=== PATIENT | male | born 1945 | race African-American/Black ===

== ENCOUNTER 2021-09-19 10:50 | Emergency (ER) | payer OTHER, MEDICARE ==
[~2021-09-19] VITALS: Ht 185.4 cm; Wt 80.6 kg
[2021-09-19] MEDS ORDERED: IV NORMAL SALINE 1,000ML 1,000 ML IV ONE (11:15)
[2021-09-19] MEDS ORDERED: PROPOFOL 100 ML IV PRN (11:15)
--- NOTE | 2021-09-19 11:22 | PHYS DOC ---
Past History Past Medical History: Diabetes, Hypertension Additional Past Medical Histor: Glaucoma Past Medical History Limited secondary to respiratory arrest/altered mental status Past Surgical History Limited secondary to respiratory arrest/altered mental status Smoking: Non-smoker Alcohol Use: None Drug Use: None Social History Limited secondary to respiratory arrest/altered mental status General Adult EDM: Chief Complaint: DYSPNEA/RESPIRATOY DISTRESS HPI: HPI: 75 year old male presents via EMS with SOA and low O2 sat. EMS reported O2 saturation of 60% in the field despite placement of 15L via non-rebreather mask. Blood sugar via EMS was 164. Per patient's family, he is not vaccinated for COVID. Denies known trauma. Denies known drug abuse. HPI limited due to acuity of condition/respiratory failure/altered mental status. Review of Systems: Review of Systems: ROS limited due to acuity of condition/respiratory failure/altered mental status. Current Medications: Current Meds: Current Medications Medications (Trade) Dose Ordered Sig/Nicolas Start Time Stop Time Status Last Admin Dose Admin Propofol 100 ml @ 0 mls/hr CONT PRN 09/19/21 11:15 UNV Sodium Chloride 1,000 ml @ 1,000 mls/hr 1X ONCE 09/19/21 11:15 09/19/21 12:14 UNV Physical Exam: PE: Constitutional: Ill-appearing, unresponsive HENT: Normocephalic, atraumatic, nares clear, TMs clear Eyes: Conjunctiva normal, no discharge Neck: Normal range of motion, supple Lungs & Thorax: Agonal respirations, limited chest rise and fall Cardiovascular: Regular rate and rhythm, normal heart sounds Abdomen: Soft, mild distention Skin: Warm, diaphoretic, no rash Extremities: No deformity, no edema Neurologic: GCS 3, Psychologic: Unable to obtain Current Patient Data: Vital Signs: Vital Signs Date Time Temp Pulse Resp B/P (MAP) Pulse Ox O2 Delivery O2 Flow Rate FiO2 09/19/21 11:10 100 Ventilator EKG: EKG: EKG @ 1115. Sinus rhythm at rate 76 bpm. Left anterior fascicular block, hyperacute T waves. RR 793ms. MN 162ms. QRS 104ms. QT 436ms. QTc 490ms. Radiology/Procedures: Radiology/Procedures: PROCEDURE: CT HEAD WO CONTRAST CT HEAD WITHOUT CONTRAST 09/19/2021 11:18 AM Indication: Reason: altered mental status / Spl. Instructions: / History: Comparison: None Procedure: Multidetector CT imaging of the head was performed without the administration of contrast. Findings: There is no evidence of acute intracranial hemorrhage. There is no evidence of acute territorial infarction. Please note that CT is limited for evaluation of acute ischemia. No mass effect or midline shift is identified . The ventricles and basilar cisterns have an appropriate appearance. No abnormal extra-axial fluid collections are seen. Fluid levels. Be present in the ethmoid air cells and sphenoid sinuses. Impression: 1.No evidence of acute intracranial abnormality 2. Ethmoid air cells and sphenoid sinus could represent sinusitis. Correlate with clinical findings. CT DOSING PQRS STATEMENT: One or more of the following individualized dose reduction techniques were utilized for this examination: 1. Automated exposure control 2. Adjustment of the mA and/or kV according to patient size 3. Use of iterative reconstruction technique Electronically signed by: Montana Aldana MD (09/19/2021 12:04 PM) [id number] PROCEDURE: CT ANGIOGRAPHY CHEST EXAM: CT chest with contrast - pulmonary embolus protocol CLINICAL HISTORY: Shortness of air COMPARISON: None. TECHNIQUE: CT of the chest following the administration of intravenous contrast during the pulmonary arterial phase. Axial, coronal and sagittal reformatted images were generated including MIP images. ---PQRS compliance statement - One or more of the following individualized dose reduction techniques were utilized for this study: 1. Automated exposure control 2. Adjustment of the mA and/or kV according to patient size 3. Use of iterative reconstruction technique--- FINDINGS: CHEST: Diagnostic quality: Adequate. Pulmonary emboli: None seen Right heart strain: None Pulmonary arteries: Normal in caliber. Heart is not enlarged. Small pericardial effusion. Small pleural effusions. Dependent opacities bilaterally possibly atelectasis. Diffuse groundglass opacities are seen bilaterally. Interstitial prominence. Evaluation for underlying lung nodule or mass is limited given the parenchymal opacities. Imaging follow-up to resolution is recommended. ET tube tip terminates within the mid-distal thoracic trachea. Stomach is markedly distended. Prominent mediastinal and hilar lymph nodes likely reactive. No axillary lymphadenopathy. No aggressive osseous lesion is seen. IMPRESSION: No evidence for acute pulmonary embolus. Bilateral pleural effusions, interstitial prominence and. Small pericardial effusion may be seen with pulmonary edema. Atypical infectious or inflammatory process could also have this appearance. Imaging follow-up to resolution is recommended as underlying mass or nodule may be obscured. Electronically signed by: Nathan Ruiz MD (09/19/2021 12:22 PM) [facility] Heart Score: C/O Chest Pain: N/A Course & Med Decision Making: Course & Med Decision Making 75 year old male presents via EMS unresponsive in respiratory failure. Patient arrived in respiratory failure with O2 sat down to 61% despite being on a nonrebreather at 15 L. Patient requiring [id number] with subsequent improvement of O2 sat. Patient did continue with unresponsiveness. Rapid sequence intubation performed with subsequent intubation. EKG with prominent T waves and no significant ST elevation. Labs obtained and posted to chart. Rapid COVID-19 testing negative. Troponin within normal limits. BNP slightly elevated. CTA chest without signs of acute PE however concern for atelectasis versus infiltrate noted. Cannot fully exclude COVID-19. COVID-19 PCR pending. Empiric antibiotic initiated. Initial ABG with low O2. PEEP increased. Hypertension also continued despite use of Propofol for sedation maintenance. Labetalol therefore also provided. Patient requiring transfer to higher level facility for admission for further evaluation and treatment. Discussed with Dr. Jeffries (hospitalist) at [facility] who is in agreement with admit. RN discussed findings and plan with patient's daughter and spouse, who acknowledge understanding and agreement. COVID-19 CRITERIA: The patient was evaluated during the global COVID-19 pandemic, and that diagnosis was suspected/considered upon their initial presentation. Their evaluation, treatment and testing was consistent with current guidelines for patients who present with complaints or symptoms that may be related to COVID-19. Dragaguila Disclaimer: Dragaguila Disclaimer: This electronic medical record was generated, in whole or in part, using a voice recognition dictation system. Intubation Intubation : Intubation Method: orotracheal Tube Size (cm): 8.0 Breath Sounds after Intubation: equal Intubation Complications: no complications Post Intubation Xray: Yes (CTA chest) Progress Emergent consent utilized. Time out performed. Hand hygiene utilized. Bag valve mask utilized to improve patient's oxygenation. RSI utilized with 20mg of Etomidate and 50mg of Rocuronium. Direct laryngoscopy performed with branch blade with successful placement of bougie through larynx with interval placement of cuffed 8.0 ETT via Seldinger technique. ETT marked 24cm at the teeth. Fogging noted in tube with equal chest expansion and end tidal nCO2 color change. Patient tolerated procedure well and without difficulty. Departure Departure: Impression: Primary Impression: Respiratory failure Qualified Codes: J96.01 - Acute respiratory failure with hypoxia Additional Impressions: Hypoxia Suspected 2019 novel coronavirus infection Hypertension Qualified Codes: I10 - Essential (primary) hypertension Disposition: 02 [facility] ([facility]- Dr. Jeffries (hospitalist) accepting) Condition: CRITICAL Referrals: PCP,NO (PCP) COVID-19 Assessment COVID-19 Patient Risks: Age 65 or older: Yes Sign of co-morbidity: Yes Exp to person + for COVID: No Exp to PUI: No Travel from affected area: No Lower respiratory symptoms: No Fever: No Other: Yes PPE Use: Full PPE with N95 mask or PAPR: Yes Critical Care Time Critical care time was 30 minutes which includes time at bedside, spent in discussion of patient's care with specialists and/or family members, with interpretation of laboratory and/or radiological studies and is exclusive of procedures. REAL KENDALL DO Sep 19, 2021 11:22
[2021-09-19 11:24] LABS: BASO # 0.1 x10^3/uL (0.0-0.2); BASO % 1 % (0-3); EOS # 0.3 x10^3/uL (0.0-0.7); EOS % 2 % (0-3); HEMATOCRIT 38.9 % (39.0-53.0); HEMOGLOBIN 12.6 g/dL (13.0-17.5); LYMPH # 5.9 x10^3/uL (1.0-4.8); LYMPH % 40 % (24-48); MEAN CORPUSCULAR HEMOGLOBIN 33 pg (25-35); MEAN CORPUSCULAR HGB CONC 32 g/dL (31-37); MEAN CORPUSCULAR VOLUME 101 fL (79-100); MONO # 0.7 x10^3/uL (0.0-1.1); MONO % 5 % (0-9); NEUT # 7.6 x10^3uL (1.8-7.7); NEUT % 52 % (31-73); PLATELET COUNT 152 x10^3/uL (140-400); RED BLOOD COUNT 3.87 x10^6/uL (4.30-5.70); RED CELL DISTRIBUTION WIDTH 13.3 % (11.5-14.5); WHITE BLOOD COUNT 14.5 x10^3/uL (4.0-11.0)
[2021-09-19] MEDS ORDERED: ROCURONIUM 50 MG/5 ML VIAL. IV ONE (11:30)
[2021-09-19] MEDS ORDERED: ETOMIDATE 40 MG/20 ML VIAL. INJ ONE (11:30)
[2021-09-19] MEDS ORDERED: IOHEXOL 350 MG/ML 100 ML VIAL. IV ONE (11:30)
[2021-09-19 11:36] LABS: CALCIUM 8.8 mg/dL (8.5-10.1); CREATININE 0.8 mg/dL (0.7-1.3); GFR 114.3
[2021-09-19 11:49] LABS: BILIRUBIN,URINE NEG (NEG); CLARITY,URINE CLEAR; COLOR,URINE YELLOW; GLUCOSE,URINE NEG (NEG); NITRITE,URINE NEG (NEG); UROBILINOGEN,URINE 0.2 mg/dL (0.2 mg/dL)
[2021-09-19 11:50] LABS: SQUAMOUS EPITHELIAL CELL,UR OCC /LPF
[2021-09-19 11:51] LABS: BACTERIA,URINE 0 /HPF (0-FEW); GRANULAR CASTS,URINE OCC /HPF; HYALINE CASTS, URINE OCC /HPF; WBC,URINE OCC /HPF (0-4)
[2021-09-19 11:54] LABS: BARBITURATES NEG (NEG); BENZODIAZEPINES NEG (NEG); CANNABINOIDS NEG (NEG); COCAINE NEG (NEG); METHADONE NEG (NEG); OPIATES NEG (NEG); PHENCYCLIDINE NEG (NEG)
[2021-09-19 11:55] LABS: ALBUMIN 3.9 g/dL (3.4-5.0); ALBUMIN/GLOBULIN RATIO 1.1 (1.0-1.7); MAGNESIUM 2.1 mg/dL (1.8-2.4); TOTAL BILIRUBIN 0.4 mg/dL (0.2-1.0); TOTAL PROTEIN 7.5 g/dL (6.4-8.2)
[2021-09-19 12:06] LABS: AMPHETAMINE/METHAMPHETAMINE NEG (NEG)
--- NOTE | 2021-09-19 12:06 | RAD ---
CT HEAD WITHOUT CONTRAST 09/19/2021 11:18 AM Indication: Reason: altered mental status / Spl. Instructions: / History: Comparison: None Procedure: Multidetector CT imaging of the head was performed without the administration of contrast. Findings: There is no evidence of acute intracranial hemorrhage. There is no evidence of acute territ orial infarction. Please note that CT is limited for evaluation of acute ischemia. No mass effect or midline shift is identified . The ventricles and basilar cisterns have an appropriate appearance. No abnormal extra-axial fluid collections are seen. Fluid levels. Be present in the ethmoid air cells an d sphenoid sinuses. Impression: 1.No evidence of acute intracranial abnormality 2. Ethmoid air cells and sphenoid sinus could represent sinusitis. Correlate with clinical findings. CT DOSING PQRS STATEMENT: One or more of the following individualized dose reduction techniques were utilized for this examinat ion: 1. Automated exposure control 2. Adjustment of the mA and/or kV according to patient size 3. Use of iterative reconstruction technique Electronically signed by: Montana Aldana MD (09/19/2021 12:04 PM) [id number]
[2021-09-19 12:11] LABS: BGAS PH 7.31 (7.35-7.46)
--- NOTE | 2021-09-19 12:24 | RAD ---
EXAM: CT chest with contrast - pulmonary embolus protocol CLINICAL HISTORY: Shortness of air COMPARISON: None. TECHNIQUE: CT of the chest following the administration of intravenous contrast during the pulmonary arterial phase. Axial, coronal and sagittal reformatted images were generated including MIP images. ---PQRS compliance statement - One or more of the following individualized dose reduction techniques were utilized for this study: 1. Automated exposure control 2. Adjustment of the mA and/or kV according to patient size 3. Use of iterative reconstruction technique--- FINDINGS: CHEST: Diagnostic quality: Adequate. Pulmonary emboli: None seen Right heart strain: None Pulmonary arteries: Normal in caliber. Heart is not enlarged. Small pericardial effusion. Small pleural effusions. Dependent opacities bilat erally possibly atelectasis. Diffuse groundglass opacities are seen bilaterally. Interstitial promine nce. Evaluation for underlying lung nodule or mass is limited given the parenchymal opacities. Imagin g follow-up to resolution is recommended. ET tube tip terminates within the mid-distal thoracic trach ea. Stomach is markedly distended. Prominent mediastinal and hilar lymph nodes likely reactive. No ax illary lymphadenopathy. No aggressive osseous lesion is seen. IMPRESSION: No evidence for acute pulmonary embolus. Bilateral pleural effusions, interstitial prominence and. Small pericardial effusion may be seen with pulmonary edema. Atypical infectious or inflammatory process could also have this appearance. Imagin g follow-up to resolution is recommended as underlying mass or nodule may be obscured. Electronically signed by: Nathan Ruiz MD (09/19/2021 12:22 PM) [id number]
[2021-09-19] MEDS ORDERED: PIPERACILLIN/TAZOBACTAM 4.5 GM in IV NORMAL SALINE 50ML 50 ML IV ONE (12:45)
[2021-09-19] MEDS ORDERED: ASPIRIN RECTAL 300 MG SUPP. PR ONE (12:45)
[2021-09-19] MEDS ORDERED: LABETALOL 20 MG/4 ML DISP.SYRIN. IVP ONE (12:45)
[2021-09-19] MEDS ORDERED: AZITHROMYCIN 500 MG in IV NORMAL SALINE 250ML 250 ML IV ONE (12:45)
[2021-09-19] MEDS ORDERED: DEXAMETHASONE SOD PHOS 10 MG/ML VIAL. IVP ONE (12:45)
[2021-09-19] MEDS ORDERED: IV NORMAL SALINE 50ML 50 ML ONE (12:53)
[2021-09-19] MEDS ORDERED: PIPERACILLIN/TAZOBACTAM 4.5 GM VIAL IV ONE (12:53)
[2021-09-19] MEDS ORDERED: IV NORMAL SALINE 250ML 250 ML ONE (13:11)
[2021-09-19] MEDS ORDERED: AZITHROMYCIN 500 MG VIAL. IV ONE (13:11)
[2021-09-19 13:16] LABS: BGAS PH 7.37 (7.35-7.46)
[2021-09-19 14:09] LABS: INFLUENZA A PATIENT NEGATIVE (NEGATIVE); INFLUENZA B PATIENT NEGATIVE (NEGATIVE)
[2021-09-19] MEDS ORDERED: MIDAZOLAM HCL PF 5 MG/5 ML VIAL. ONE (16:57)
[2021-09-19] MEDS ORDERED: MIDAZOLAM HCL PF 2 MG/2 ML VIAL. IVP ONE ×2 (17:00→18:30)
[2021-09-19] MEDS ORDERED: MIDAZOLAM HCL PF 5 MG/5 ML VIAL. IV ONE ×2 (17:00→18:45)
[2021-09-19 18:36] VITALS: BP 132/70
--- NOTE | 2021-09-21 09:54 | NUR ---
Attempted to reach with covid result. No answer. Message left
== END 2021-09-19 18:57 | disposition short-term general hospital (02) ==
LOC: ER 10:50
DX: J96.91 Respiratory failure, unspecified with hypoxia (principal); I10 Essential (primary) hypertension; R41.82 Altered mental status, unspecified; E11.9 Type 2 diabetes mellitus without complications; I26.99 Other pulmonary embolism without acute cor pulmonale; Z20.822 Contact with and (suspected) exposure to COVID-19
CPT/HCPCS: 31500; 36415; 36600; 70450; 71275; 80053; 80307; 81001; 82553; 82803; 83605; 83690; 83735; 83880; 84484; 85025; 85610; 85730; 87040; 87426; 87804; 93005; 96365; 96366; 96368; 96375; 99291; C9803; J0456; J1100; J2250; J2543; J2704; J3010; J3490; J7030; J7050; Q9967; U0003; 94002